=== PATIENT | male | born 1965 | race Caucasian/White ===

== ENCOUNTER 2021-04-08 08:56 | Emergency (ER) | payer OTHER ==
[2021-04-08] MEDS ORDERED: Ondansetron PF 4 MG/2 ML Vial ONE (10:37)
[2021-04-08] MEDS ORDERED: Morphine 4 MG/ML VIAL ONE ×3 (10:37→19:53)
== END 2021-04-08 21:25 | disposition short-term general hospital (02) ==
LOC: ERS 08:56
DX: M25.551 Pain in right hip (principal); E11.9 Type 2 diabetes mellitus without complications; M19.90 Unspecified osteoarthritis, unspecified site; E78.5 Hyperlipidemia, unspecified; E03.9 Hypothyroidism, unspecified; Z79.84 Long term (current) use of oral hypoglycemic drugs; Z79.82 Long term (current) use of aspirin
CPT/HCPCS: 72170; 72192; 96374; 96375; 96376; J2270; J2405